=== PATIENT | female | born 1990 | race Two or more races ===

== ENCOUNTER 2019-12-29 18:49 | Emergency (ER) | payer MEDICAID ==
[~2019-12-29] VITALS: Ht 175.3 cm; Wt 113.4 kg
--- NOTE | 2019-12-29 18:42 | NUR ---
ED Nurse Note: spoke with elizabeth from poison control and informed that pt. ingested 6 tabs of unk dose of melatonin at 1500 and that pt. is reponsive to tactile and verbal stimulus. Per Elizabeth, observe pt. within 4-6 hrs, order: tylenol level, ASA level, blood alcohol level, CBC, CMP, and preg test. Informed Dr. Pollard.
--- NOTE | 2019-12-29 18:45 | Emergency Room Report ---
History of Present Illness General Source: Patient Present Illness HPI Patient is a 30-year-old female past medical history of obesity, depression and suicidal ideation in the past who presents to the ER after suicide attempt. Patient states that she has been arguing with 1 of her brothers that she lives with and has many problems with him and therefore took an unknown amount of melatonin 3-1/2 hours prior to arrival. [employer] was called by the patient's family who found her sleeping and difficult to arouse. EMS was called who brought her to the ER. Patient states that she was just "trying to sleep" she states that she tried to do this in the past and took so many pills that she just laid on the floor for several days at a time. She says she is never been to psychiatric facility. Patient denies any head trauma, headache, chest pain, shortness of breath, abdominal pain, nausea or vomiting. She is lethargic but very easy to arouse and compliant with questioning. Allergies: Coded Allergies: No Known Allergies (Unverified , 12/29/19) Patient History Past Medical History: psych hx, other - obesity Past Surgical History: none Social History: Denies: smoking, alcohol use, drug use Review of Systems All Other Systems: negative except mentioned in HPI Physical Exam Sp02 EP Interpretation: reviewed, normal General Appearance: no apparent distress, alert, GCS 15, non-toxic, lethargic, obese Head: normocephalic, atraumatic Eyes: bilateral eye normal inspection, bilateral eye PERRL ENT: hearing grossly normal, no angioedema, normal voice, dry mucus membranes Neck: full range of motion, supple/symm/no masses Respiratory: chest non-tender, lungs clear, normal breath sounds, speaking full sentences Cardiovascular #1: regular rate, rhythm, no edema Cardiovascular #2: 2+ carotid (R), 2+ carotid (L), 2+ radial (R), 2+ radial (L) , 2+ dorsalis pedis (R), 2+ dorsalis pedis (L) Gastrointestinal: normal bowel sounds, non tender, soft, non-distended, no guarding, no rebound Rectal: deferred Genitourinary: normal inspection, no CVA tenderness Musculoskeletal: back normal, normal range of motion, calf tenderness, non- tender Neurologic: alert, motor strength/tone normal, oriented x3, sensory intact, responsive, speech normal Psychiatric: judgement/insight normal, memory normal, depressed affect Skin: no rash Lymphatic: no adenopathy Medical Decision Making Diagnostic Impression: Primary Impression: Drug overdose Additional Impressions: Suicidal behavior Depression Leukocytosis ER Course Poison control called at 6:40 PM upon patient arrival. They want to monitor the patient for 4 to 6 hours and are requesting psych labs which have already been ordered Patient observed in the emergency room. She is now more awake and ambulatory. Patient was placed on a 5150 hold by [employer]. Awaiting psychiatric transfer. Patient signed out to oncoming physician at 2200 pending transfer. Patient has mild leukocytosis of unknown significance. Patient is medically cleared. EKG Diagnostic Results EKG Time: 18:59 EP Interpretation: MD Latrice Rate: tachycardiac Rhythm: NSR - sinus tachycardia ST Segments: no acute changes ASA given to the pt in ED: No Rhythm Strip Diag. Results Rhythm Strip Time: 19:03 EP Interpretation: yes - MD Latrice Rate: 107 Rhythm: NSR, no PVC's, no ectopy, other - sinus tachycardia Signed Out To: Dr. Iraheta at 2200 Scripts No Active Prescriptions or Reported Meds Sisi Pollard M.D. Dec 29, 2019 18:45
--- NOTE | 2019-12-29 19:00 | NUR ---
ED Nurse Note: notified nursing motor vehicle assembly supervisor of 5150 and request for sitter.
--- NOTE | 2019-12-29 19:00 | NUR ---
ED Nurse Note: Patient BIBA d/t suicide attempt after taking 6 pills of melatonin, unknown pill dosage, after having argument with family member. Patient's therapist called 911. Patient states she feels suicidal, appears drowsy. Patient on the quality assurance monitor final, blood glucose 113, MD notified. Patient AxO x 4, no s/s of acute distress. Blood sent to lab.
[2019-12-29 19:08] VITALS: BP 144/88
--- NOTE | 2019-12-29 19:12 | NUR ---
ED Nurse Note: Handoff given to Monik PEÑA
--- NOTE | 2019-12-29 19:12 | NUR ---
ED Nurse Note: Received report from CASEY Zavaleta. Patient resting in bed, no acute distress noted.
--- NOTE | 2019-12-29 19:23 | NUR ---
ED Nurse Note: Assisted patient to restroom, patient ambulating no acute distress noted, urine sample collected and sent to lab. Patient placed back on monitor technician.
[2019-12-29 19:27] VITALS: BP 113/67
--- NOTE | 2019-12-29 19:48 | NUR ---
ED Nurse Note: Patient kept black leggings on person and prescription glasses.
--- NOTE | 2019-12-29 19:48 | NUR ---
ED Nurse Note: Belongings list completed and placed in locker #3, sitter log initiated, supervisor pairing and inspecting notified of need for sitter. Suicide precautions initiated and all wires/detacheable items removed from room.
[2019-12-29 19:52] LABS: APPEARANCE,URINE CLEAR; BILIRUBIN, URINE NEGATIVE (NEGATIVE); COLOR,URINE PALE YELLOW; GLUCOSE, URINE (UA) NEGATIVE (NEGATIVE); KETONES,URINE NEGATIVE (NEGATIVE); LEUKOCYTE ESTERASE ,URINE 1+ (NEGATIVE); NITRITE,URINE NEGATIVE (NEGATIVE); PH,URINE 7 (4.5-8.0); PROTEIN,URINE NEGATIVE (NEGATIVE); UROBILINOGEN,URINE NORMAL MG/DL (0.0-1.0)
--- NOTE | 2019-12-29 20:08 | NUR ---
ED Nurse Note: Spoke to lab, informed they did not get blood samples. blood samples collected and sent to lab.
--- NOTE | 2019-12-29 20:14 | NUR ---
ED Nurse Note: Mother at bedside.
[2019-12-29 20:30] VITALS: BP 132/85
[2019-12-29 20:46] LABS: ANION GAP 8 mmol/L (5-15); BLOOD UREA NITROGEN 8 mg/dL (7-18); CALCIUM 8.5 MG/DL (8.5-10.1); CARBON DIOXIDE 27 MMOL/L (21-32); CHLORIDE 106 MMOL/L (98-107); CREATININE 0.6 MG/DL (0.55-1.30); POTASSIUM 4.4 MMOL/L (3.5-5.1); SODIUM 141 MMOL/L (136-145)
[2019-12-29 20:49] LABS: BASOPHILS % (AUTO) 1.4 % (0.0-2.0); EOSINOPHILS % (AUTO) 0.8 % (0.0-3.0); HEMATOCRIT 36.5 % (37.0-47.0); HEMOGLOBIN 11.7 G/DL (12.0-16.0); LYMPHOCYTES % (AUTO) 24.1 % (20.0-45.0); MEAN CORPUSCULAR VOLUME 80 FL (80-99); MONOCYTES % (AUTO) 6.2 % (1.0-10.0); NEUTROPHILS % (AUTO) 67.6 % (45.0-75.0); PLATELET COUNT 365 K/UL (150-450); RED BLOOD COUNT 4.58 M/UL (4.20-5.40); RED CELL DISTRIBUTION WIDTH 15.8 % (11.6-14.8)
--- NOTE | 2019-12-29 20:50 | NUR ---
ED Nurse Note: Sitter at bedside.
[2019-12-29 20:53] LABS: ALANINE AMINOTRANSFERASE 19 U/L (12-78); ALBUMIN 3.2 G/DL (3.4-5.0); ALBUMIN/GLOBULIN RATIO 0.8 (1.0-2.7); ALKALINE PHOSPHATASE 105 U/L (46-116); ASPARTATE AMINO TRANSFERASE 19 U/L (15-37); BILIRUBIN,TOTAL 0.2 MG/DL (0.2-1.0); CREATINE KINASE 142 U/L (26-308)
[2019-12-29 21:43] VITALS: BP 113/60
[2019-12-29 22:32] VITALS: BP 125/82
[2019-12-29] MEDS ORDERED: Acetaminophen 500mg (ES) tab ORAL ONE (22:45)
--- NOTE | 2019-12-29 23:46 | NUR ---
HAND-OFF: Report given to CASEY Holt. All nursing care endorsed.
[2019-12-29 23:47] VITALS: BP 145/85
--- NOTE | 2019-12-29 23:50 | NUR ---
ED Nurse Note: Report received from CASEY Ruggiero. Pt placed in OB room. Sitter at bedside. Safety protocols in place.
--- NOTE | 2019-12-30 00:20 | NUR ---
ED Nurse Note: Pt sleeping in bed. Sitter at bedside. VSS, no s/s of distress noted. Safety precautions in place.
[2019-12-30 01:45] VITALS: BP 132/79
--- NOTE | 2019-12-30 01:45 | NUR ---
ED Nurse Note: Pt sleeping in bed, VSS no s/s of distress noted. Sitter at bedside. Safety precautions in place.
--- NOTE | 2019-12-30 02:30 | NUR ---
ED Nurse Note: Pt sleeping in bed. Sitter at bedside. VSS, no s/s of distress noted. Safety precautions in place.
[2019-12-30 03:53] VITALS: BP 132/80
--- NOTE | 2019-12-30 03:54 | NUR ---
ED Nurse Note: Pt sleeping in bed, VSS no s/s of distress noted. Sitter at bedside. Safety precautions in place.
--- NOTE | 2019-12-30 04:27 | NUR ---
ED Nurse Note: Pt sleeping in bed. Sitter at bedside. VSS, no s/s of distress noted. Safety precautions in place.
[2019-12-30 05:00] VITALS: BP 130/78
--- NOTE | 2019-12-30 05:00 | NUR ---
ED Nurse Note: Pt sleeping in bed, VSS no s/s of distress noted. Sitter at bedside. Safety precautions in place.
--- NOTE | 2019-12-30 05:37 | NUR ---
ED Nurse Note: pt ambulated to restroom accompanied by sitter. safety precautions in place.
--- NOTE | 2019-12-30 06:45 | NUR ---
ED Nurse Note: Pt resting in bed, no s/s of distress noted. Sitter at bedside. Safety precautions in place.
--- NOTE | 2019-12-30 07:07 | NUR ---
ED Nurse Note: Handoff report given to CASEY Burton
--- NOTE | 2019-12-30 07:35 | NUR ---
ED Nurse Note:pt.is sleeping, VSS, sitter is in room
[2019-12-30 08:52] VITALS: BP 133/79
--- NOTE | 2019-12-30 09:12 | NUR ---
ED Nurse Note: pt. stated that she has no SI/HI today, compliant and calm
[2019-12-30] MEDS ORDERED: LEXAPRO10 MG ORAL (10:52)
--- NOTE | 2019-12-30 11:00 | NUR ---
ED Nurse Note:pt. was evaluated by dr. Campbell, then 51/ was lifted by , pt. received her belongings and psich resourses list
[2019-12-30 11:20] VITALS: BP 133/79
--- NOTE | 2019-12-30 11:20 | NUR ---
ER DISCHARGE NOTE: Patient is cleared to be discharged per ERMD, pt is aox4, on room air, with stable vital signs. pt was given dc and prescription instructions, pt was able to verbalize understanding, pt id band and iv site removed without complications. pt is able to ambulate with steady gait. pt took all belongings.
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
== END 2019-12-30 11:20 | disposition home or self-care (01) ==
LOC: EDBD 18:49 → EMR 19:47 → EDBD 19:47 → EMR 12-30 11:20
DX: T50.992A Poisoning by other drugs, medicaments and biological substances, intentional self-harm, initial encounter (principal); Y92.9 Unspecified place or not applicable; R45.851 Suicidal ideations; F32.9 Major depressive disorder, single episode, unspecified; D72.828 Other elevated white blood cell count
CPT/HCPCS: 36415; 80053; 80307; 81003; 81025; 82550; 82962; 83735; 85025; 93005; 96360; G0480; G0481; J7030; Z7502; 99285